=== PATIENT | female | born 2000 | race Caucasian/White ===

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

== ENCOUNTER 2021-09-05 21:05 | Emergency (ER) | payer BC, SELFPAY ==
[2021-09-05 21:06] VITALS: BP 121/68; PULSE 94; RESP 16; TEMP 36.9; O2SAT 96; BMI 22.8
[2021-09-06 02:21] VITALS: PULSE 70
--- NOTE | 2021-09-06 03:59 | EX.ED.DYSGE1 ---
HPI History of Present Illness Chief Complaint: Laceration Narrative Narrative: Patient is a 21-year-old female who is right-hand dominant. 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 She denies any numbness tingling weakness but based on laceration is concerned it may need sutures and therefore comes in for evaluation. Patient states she is unsure of her tetanus status PFSH [facility] Home Medications No Known/Unobtainable [No Known Home Medications] 06/17/14 [History Last Taken Unknown] Allergy/AdvReac Type Severity Reaction Status Date / Time No Known Allergies Allergy Verified 09/05/21 21:07 Social History (Updated 07/24/19 @ 20:[address] Meredith Ramos MD) Smoking Status: Never smoker alcohol intake: never substance use type: does not use seatbelt use: always additional social history: Senior in High School ROS ROS ED Constitutional Constitutional ED: Denies chills or fever(s) ENT ENT ED: Denies sore throat Cardiovascular Cardiovascular: Denies chest pain Respiratory/Chest Respiratory/Chest: Denies cough or dyspnea Gastrointestinal Gastrointestinal: Denies abdominal pain, diarrhea, nausea or vomiting Genitourinary Genitourinary ED: Denies dysuria Musculoskeletal Musculoskeletal: Reports other Details: Positive left thumb pain ; Denies myalgias Integumentary Reports other Details: Positive left thumb laceration ; Denies rash Neurologic Neurologic: Denies headache(s), paresthesias or weakness Hematologic/Lymphatic Hematologic/Lymphatic: Denies easy bleeding or easy bruising EXAM Physical Exam Const Vital Signs: 09/05/21 21:06 09/06/21 02:21 Temperature 98.5 F Temperature Source Temporal Pulse Rate 94 70 Respiratory Rate 16 Blood Pressure 121/68 H Blood Pressure Mean 85 Pulse Ox 96 Oxygen Delivery Method Room Air Positive well nourished and well developed General Appearance ED: well developed Eyes PERRL and EOMs intact bilaterally Neck supple Resp normal respiratory effort and clear to auscultation bilaterally Cardio regular rate and regular rhythm Extremity Extremity Narrative: Patient has a linear 2 cm laceration of the dorsal aspect of her left thumb. The wound is subcutaneous layer deep with no foreign body no ligamentous or tendon damage. There is a small superficial arterial artery bleeding associated with laceration. Otherwise no signs of bony deformity and the remainder the exam is normal Neuro oriented x3 and CN's II-XII intact bilaterally Sensorium / Orientation: alert Psych mental status grossly normal Skin Skin Narrative: Laceration to the left thumb as document above MDM MDM MDM Narrative Medical decision making narrative: Patient presented to ER with a simple laceration to her left thumb. She has no signs of ligamentous or tendon or bony damage so there is no need for x-ray or blood work. We discussed updating the patient's tetanus status but she has no concern for this with her laceration and therefore does not want it given. Therefore the laceration was sutured as documented below and patient is safe for discharge Patient had her left thumb cleaned with chlorhexidine. It was anesthetized with 8 mL of 2% lidocaine without epinephrine in digital block fashion. The wound was copiously irrigated with normal saline. Then three 5-0 Vicryl sutures were placed in a pursestring fashion to close the small superficial arterial bleeding. After this 4 4-0 Ethilon sutures were then placed in simple operative fashion to bring the wound together good approximation. Patient tolerated procedure well without complication Discharge Plan Triage Chief Complaint: Laceration ED Provider: Aiden Burns Dx/Rx/DC Orders Clinical Impression: Laceration of left thumb Instructions: ED Laceration, Hand: All Closures Prescriptions: No Action No Known Home Medications RF: 0 Primary Care Provider: Odilon Bonner Referrals: Odilon Bonner MD [Primary Care Provider] - Activity Restrictions/Additional Instructions: Please see your family doctor or return to the ER in 7 to 10 days for suture removal Disposition Disposition: Home, Self Care Discharge Date/Time: 09/06/21 04:29
== END 2021-09-06 04:29 | disposition home or self-care (01) ==
PROVIDERS: Emergency Provider Emergency Medicine; PCP Family Medicine; Visit Provider Emergency Medicine
DX: S61.012A Laceration without foreign body of left thumb without damage to nail, initial encounter (principal); W26.9XXA Contact with unspecified sharp object(s), initial encounter
CPT/HCPCS: 12001; 99283

== ENCOUNTER → 2022-05-30 | Outpatient (CLI) | payer BC, SELFPAY | END | disposition home or self-care (01) | LOC: LAB 15:55 | PROVIDERS: PCP Family Medicine; Referring Provider Otolaryngology; Visit Provider Otolaryngology | DX: J02.9 Acute pharyngitis, unspecified (principal) | CPT/HCPCS: 87070 ==

== ENCOUNTER → 2022-08-25 | Outpatient (CLI) | payer BC, SELFPAY ==
[2022-08-25 12:38] LABS: Absolute Lymphocyte Count 1.34 X10^3/uL (0.83-4.51); Absolute Neutrophil Count 1.3 X10^3/uL (2.0-7.7); Basophil# 0.02 X10^3/uL; Basophil% 0.7 % (0-1); Eosinophil# 0.01 X10^3/uL; Eosinophils% 0.3 % (0-5); Hematocrit 41.6 % (37-47); Hemoglobin 13.2 g/dL (12.0-15.0); Lymphocyte # 1.34 X10^3/ul (0.83-4.51); Lymphocyte % 45.7 % (19-41); Mean Corp Hgb Conc 31.7 g/dL (32-36); Mean Corpuscular Hgb 27.4 pg (27.0-32.0); Mean Corpuscular Volume 86.3 fL (81-99); Mean Platelet Vol. 10.6 fl (6.2-12.0); Monocyte% 10.2 % (0-10); NRBC Flagged by Analyzer 0 % (0-5); Neutrophil # 1.26 X10^3/uL (2.7-7.7); Neutrophil % 43.1 % (47-70); Platelet Count 233 K/mm3 (150-450); RBC Distribution Width CV 12.9 % (11.6-14.6); RBC Distribution Width SD 40.3 fl (35.1-43.9); Red Blood Count 4.82 M/mm3 (4.2-5.4); White Blood Count 2.9 K/mm3 (4.4-11.0)
[2022-08-25 12:39] LABS: ALB/GLOB Ratio 1.2 RATIO (0.9-2.4); AST(SGOT) 17 U/L (15-37); Alanine Aminotransfer ALT/SGPT 22 U/L (13-56); Albumin, Serum 4.1 g/dL (3.2-5.0); Alkaline Phosphatase 48 U/L (45-117); Anion Gap 3 (5-15); BUN 10 mg/dL (7-18); CRP < 2.90 mg/L (0.0-3.0); Chloride 106 mmol/L (98-107); Creatinine, Serum 0.62 mg/dL (0.55-1.02); EST Glomerular Filtration Rate 128 mL/min (>60); Est Glom Filt Rate - Afr Amer 155 mL/min (>60); Globulin 3.3 g/dL (2.2-4.2); Glucose 85 mg/dL (74-106); Potassium 4.3 mmol/L (3.5-5.1); Protein, Total 7.4 g/dL (6.4-8.2); Sodium Level 138 mmol/L (136-145)
[2022-08-25 12:41] LABS: Internal QC Validated? YES +Cl - CLEAR BKGD
[2022-08-25 12:42] LABS: Monotest Negative (Negative)
== END | disposition home or self-care (01) ==
LOC: MFPLAB 10:38
PROVIDERS: PCP Family Medicine; Referring Provider Family Medicine; Visit Provider Family Medicine
DX: J11.1 Influenza due to unidentified influenza virus with other respiratory manifestations (principal); R10.811 Right upper quadrant abdominal tenderness
CPT/HCPCS: 36415; 80053; 85025; 86140; 86308

== ENCOUNTER → 2023-05-24 | Outpatient (CLI) | payer BC, SELFPAY ==
[2023-05-28 06:07] LABS: Chlamydia By Nucleic Acid AMP Negative (Negative); Gonococcus By Nucleic Acid AMP Negative (Negative)
[2023-05-29 19:51] LABS: HPV Reflexed? NOT INDICATED
== END | disposition home or self-care (01) ==
LOC: LABSPEC 16:55
PROVIDERS: Referring Provider Obstetrics & Gynecology; Visit Provider Obstetrics & Gynecology
DX: Z34.90 Encounter for supervision of normal pregnancy, unspecified, unspecified trimester (principal); Z3A.00 Weeks of gestation of pregnancy not specified
CPT/HCPCS: 87491; 87591; 88175; G0145

== ENCOUNTER → 2023-06-04 | Outpatient (CLI) | payer BC, SELFPAY ==
[2023-06-04 17:00] LABS: Absolute Lymphocyte Count 2.41 X10^3/uL (0.83-4.51); Absolute Neutrophil Count 6.9 X10^3/uL (2.0-7.7); Basophil# 0.06 X10^3/uL; Basophil% 0.6 % (0-1); Eosinophil# 0.08 X10^3/uL; Eosinophils% 0.8 % (0-5); Hematocrit 36.2 % (37-47); Hemoglobin 11.8 g/dL (12.0-15.0); Lymphocyte # 2.41 X10^3/ul (0.83-4.51); Lymphocyte % 24.1 % (19-41); Mean Corp Hgb Conc 32.6 g/dL (32-36); Mean Corpuscular Hgb 27.6 pg (27.0-32.0); Mean Corpuscular Volume 84.6 fL (81-99); Mean Platelet Vol. 10.5 fl (6.2-12.0); Monocyte# 0.54 X10^3/uL; Monocyte% 5.4 % (0-10); NRBC Flagged by Analyzer 0 % (0-5); Neutrophil # 6.88 X10^3/uL (2.7-7.7); Neutrophil % 68.9 % (47-70); Platelet Count 288 K/mm3 (150-450); RBC Distribution Width CV 12.7 % (11.6-14.6); RBC Distribution Width SD 38.8 fl (35.1-43.9); Red Blood Count 4.28 M/mm3 (4.2-5.4)
[2023-06-04 17:15] LABS: NATERA MAILED SPECIMEN
[2023-06-04 18:18] LABS: HIV - WCH Non-Reactive (Nonreactive); Hepatitis B Surface Antigen Non-Reactive (Nonreactive); Hepatitis C Antibody Non-Reactive (Nonreactive); Rubella IgG Reactive (Nonreactive); Syphilis Antibodies Non-reactive
== END | disposition home or self-care (01) ==
LOC: LAB 16:02
PROVIDERS: PCP Family Medicine; Referring Provider Obstetrics & Gynecology; Visit Provider Obstetrics & Gynecology
DX: Z34.81 Encounter for supervision of other normal pregnancy, first trimester (principal); Z3A.00 Weeks of gestation of pregnancy not specified; Z31.430 Encounter of female for testing for genetic disease carrier status for procreative management
CPT/HCPCS: 36415; 85025; 86703; 86762; 86780; 86803; 86850; 86900; 86901; 87086; 87088; 87340

== ENCOUNTER → 2023-06-25 | Outpatient (CLI) | payer BC, SELFPAY | END | disposition home or self-care (01) | LOC: LABSPEC 15:55 | PROVIDERS: PCP Family Medicine; Referring Provider Registered Nurse; Visit Provider Registered Nurse | DX: O23.40 Unspecified infection of urinary tract in pregnancy, unspecified trimester (principal); Z3A.00 Weeks of gestation of pregnancy not specified | CPT/HCPCS: 87086; 87088 ==

== ENCOUNTER → 2023-10-11 | Outpatient (CLI) | payer BC, SELFPAY ==
[2023-10-11 10:16] LABS: Absolute Lymphocyte Count 1.43 X10^3/uL (0.83-4.51); Absolute Neutrophil Count 6.3 X10^3/uL (2.0-7.7); Basophil# 0.06 X10^3/uL; Basophil% 0.7 % (0-1); Eosinophil# 0.13 X10^3/uL; Eosinophils% 1.5 % (0-5); Hematocrit 27.2 % (37-47); Hemoglobin 8.7 g/dL (12.0-15.0); Lymphocyte # 1.43 X10^3/ul (0.83-4.51); Lymphocyte % 16.6 % (19-41); Mean Corpuscular Hgb 27.8 pg (27.0-32.0); Mean Corpuscular Volume 86.9 fL (81-99); Mean Platelet Vol. 9.8 fl (6.2-12.0); Monocyte# 0.53 X10^3/uL; Monocyte% 6.1 % (0-10); NRBC Flagged by Analyzer 0 % (0-5); Platelet Count 275 K/mm3 (150-450); RBC Distribution Width CV 13.9 % (11.6-14.6); Red Blood Count 3.13 M/mm3 (4.2-5.4); White Blood Count 8.6 K/mm3 (4.4-11.0)
[2023-10-11 10:36] LABS: Glucose Challenge Gest 1H 50g 159 mg/dL (70-140)
[2023-10-11 11:09] LABS: HIV - WCH Non-Reactive (Nonreactive); Syphilis Antibodies Non-reactive
== END | disposition home or self-care (01) ==
LOC: PAVLAB 09:48
PROVIDERS: Registered Nurse; PCP Family Medicine; Referring Provider Advanced Practice Midwife; Visit Provider Advanced Practice Midwife
DX: O99.019 Anemia complicating pregnancy, unspecified trimester (principal); D56.3 Thalassemia minor; Z3A.00 Weeks of gestation of pregnancy not specified
CPT/HCPCS: 36415; 82950; 83021; 85025; 85660; 86703; 86780

== ENCOUNTER → 2023-10-17 | Outpatient (CLI) | payer BC, SELFPAY ==
--- OUTSIDE RECORDS SUMMARY | 2023-10-17 10:12 | XMS RPT_ITS | CCD ---
Author Name Unknown Address [address] [place] [address] [id number] [place] [address] Organization [facility] Care Team Providers Care Program Host Name Role Phone CALIN BROWNING Attending Unavailable SUPRIYA ZALDIVAR Referring SUPRIYA Dalal Primary Care Richi kinney Encounters Encounter Date Encounter Type Care Provider Facility Start: 08-09-2023 End: 08-09-2023 ambulatory CALIN BROWNING [facility] Payers Date Payer Category Payer Unknown [id number] Unknown [id number] Summary Purpose Family History No Family History Records Found Advance Directives No Advanced Directives Records Found Additional Source Comments INFORMATION SOURCE (unrecogn ized section and content) FOR RECORDS PERTAINING TO PATIENTS WHO ARE OR HAVE BEEN ENROLLED IN A CHEMICAL DEPENDENCY/SUBSTANCEABUSE PROGRAM, SOME INFORMATION MAY BE OMITTED. This clinical summary was aggregated from multiple sources. Caution should be exercised in using it in the provision of clinical care. This summary normalizes information from multiple sources, and as a consequence, information in this document may materially change the coding, format and clinical context of patient data. In addition, data may be omitted in some cases. CLINICAL DECISIONS SHOULD BE BASED ON THE PRIMARY CLINICAL RECORDS. [employer] provides no warranty or guarantee of the accuracy or completeness of information in this document.
[2023-10-17 11:17] LABS: Absolute Lymphocyte Count 1.76 X10^3/uL (0.83-4.51); Absolute Neutrophil Count 7.2 X10^3/uL (2.0-7.7); Basophil# 0.08 X10^3/uL; Basophil% 0.8 % (0-1); Eosinophil# 0.19 X10^3/uL; Eosinophils% 1.8 % (0-5); Hematocrit 30.8 % (37-47); Hemoglobin 9.4 g/dL (12.0-15.0); Lymphocyte # 1.76 X10^3/ul (0.83-4.51); Mean Corp Hgb Conc 30.5 g/dL (32-36); Mean Corpuscular Hgb 26.3 pg (27.0-32.0); Mean Corpuscular Volume 86.3 fL (81-99); Mean Platelet Vol. 10.7 fl (6.2-12.0); Monocyte# 0.83 X10^3/uL; NRBC Flagged by Analyzer 0 % (0-5); Neutrophil # 7.21 X10^3/uL (2.7-7.7); Neutrophil % 69.7 % (47-70); Platelet Count 324 K/mm3 (150-450); RBC Distribution Width CV 13.8 % (11.6-14.6); RBC Distribution Width SD 42.5 fl (35.1-43.9); Red Blood Count 3.57 M/mm3 (4.2-5.4); White Blood Count 10.4 K/mm3 (4.4-11.0)
[2023-10-17 11:48] LABS: Vitamin B12 324 pg/mL (211-911)
[2023-10-17 11:49] LABS: Glucose GTT-Gestation. Fasting 95 mg/dL (<105)
[2023-10-17 11:49] LABS: Glucose GTT-Gestational 1 Hr 186 mg/dL (<190)
[2023-10-17 12:58] LABS: Glucose GTT-Gestational 2 Hr 145 mg/dL (<165)
[2023-10-17 13:36] LABS: Glucose GTT-Gestational 3 Hr 89 L (<145)
[2023-10-17 14:37] LABS: Ferritin 5 ng/mL (8-252); Iron 30 ug/dL (50-170); Iron Binding Capacity,Total 572 ug/dL (250-450)
== END | disposition home or self-care (01) ==
LOC: LAB 09:52
PROVIDERS: PCP Family Medicine; Referring Provider Advanced Practice Midwife; Visit Provider Advanced Practice Midwife
DX: O99.019 Anemia complicating pregnancy, unspecified trimester (principal); O99.810 Abnormal glucose complicating pregnancy; Z3A.00 Weeks of gestation of pregnancy not specified
CPT/HCPCS: 36415; 82607; 82728; 82746; 82951; 82952; 83540; 83550; 85025

== ENCOUNTER → 2023-12-07 | Outpatient (CLI) | payer BC, SELFPAY | END | disposition home or self-care (01) | LOC: LABSPEC 12:44 | PROVIDERS: PCP Family Medicine; Referring Provider Obstetrics & Gynecology; Visit Provider Obstetrics & Gynecology | DX: Z34.90 Encounter for supervision of normal pregnancy, unspecified, unspecified trimester (principal); Z3A.00 Weeks of gestation of pregnancy not specified | CPT/HCPCS: 87081 ==

== ENCOUNTER → 2023-12-07 | Outpatient (CLI) | payer BC, SELFPAY ==
--- NOTE | 2023-12-07 15:37 | US_ITS ---
STUDY: SECOND AND THIRD TRIMESTER OBSTETRICAL ULTRASOUND - LIMITED REASON FOR EXAM: Female, 23 years old gestational diabetes, growth scan PRIOR ULTRASOUND: No relevant prior comparison study available TECHNIQUE: Transabdominal. Grayscale and color Doppler imaging with M-mode analysis. TECHNICAL QUALITY: Adequate. FINDINGS: There is a single intrauterine fetus. The fetus is in a cephalic presentation. There is demonstrated cardiac activity with a heart rate of 144 bpm. There is a normal amniotic fluid volume. The largest amniotic fluid pocket measures 3.5 cm. The amniotic fluid index (POLA) is 12.1 cm. The placenta is posterior There are Grade 2 placental changes. The cervix is not seen.. BIOMETRIC MEASUREMENTS: * BIPARIETAL DIAMETER: 9.4 cm which corresponds to 38 weeks, 1 day. * HEAD CIRCUMFERENCE: 33.3 cm which corresponds to 38 weeks, 0 days. * ABDOMINAL CIRCUMFERENCE: 34.3 cm which corresponds to 38 weeks, 1 day. * FEMORAL LENGTH: 6.6 cm which corresponds to 33 weeks, 6 days. Age by LMP: 36 weeks, 5 days. JOSEPH by LMP: 12/30/2023. age by current US: 37 weeks, 1 days. JOSEPH by current US: 12/27/2023. Estimated weight: 3145 grams, +/- 472 grams, 67.5 percentile. US/OB Limited With Biometrics IMPRESSION: * Single live intrauterine gestation with an estimated gestational age of 37 weeks, 1 day. * Estimated weight 3145 g which is in the 68th percentile * No acute abnormalities. Electronically Signed: Danial Stewart MD at 2:46 EDT ,
== END | disposition home or self-care (01) ==
PROVIDERS: PCP Family Medicine; Referring Provider Registered Nurse; Visit Provider Registered Nurse
DX: O24.419 Gestational diabetes mellitus in pregnancy, unspecified control (principal); Z3A.00 Weeks of gestation of pregnancy not specified
CPT/HCPCS: 76816

== ENCOUNTER 2023-12-30 19:11 | Inpatient (IN) | payer BC, SELFPAY ==
[2023-12-30 19:22] VITALS: PULSE 101; RESP 16; TEMP 37.3; O2SAT 98
[2023-12-30 19:23] VITALS: BP 125/71; PULSE 100
[2023-12-30] MEDS: Lactated Ringers 1,000 ML 50 ML IV (19:40)
[2023-12-30 19:42] VITALS: BMI 32.6
[2023-12-30 19:55] LABS: Absolute Lymphocyte Count 1.44 X10^3/uL (0.83-4.51); Absolute Neutrophil Count 7.7 X10^3/uL (2.0-7.7); Basophil# 0.05 X10^3/uL; Basophil% 0.5 % (0-1); Eosinophil# 0.09 X10^3/uL; Eosinophils% 0.9 % (0-5); Hematocrit 34.4 % (37-47); Lymphocyte # 1.44 X10^3/ul (0.83-4.51); Lymphocyte % 14.4 % (19-41); Mean Corpuscular Hgb 27.2 pg (27.0-32.0); Mean Corpuscular Volume 85.1 fL (81-99); Mean Platelet Vol. 11.8 fl (6.2-12.0); NRBC Flagged by Analyzer 0 % (0-5); Neutrophil # 7.74 X10^3/uL (2.7-7.7); Neutrophil % 77.3 % (47-70); Platelet Count 223 K/mm3 (150-450); RBC Distribution Width CV 17.8 % (11.6-14.6); RBC Distribution Width SD 54.6 fl (35.1-43.9); Red Blood Count 4.04 M/mm3 (4.2-5.4)
[2023-12-30 20:07] LABS: Bedside Glucose 89 mg/dL (74-106)
[2023-12-30] MEDS: miSOPROStol 25 MCG TABLET VAGINAL (20:24)
[2023-12-30 20:28] LABS: Syphilis Antibodies Non-reactive
[2023-12-31] VITALS (70 sets, daily range): BP systolic 59–129; BP diastolic 34–86; PULSE 65–123; RESP 16; TEMP 36.5–37.3; O2SAT 93–98
[2023-12-31 00:43] LABS: Bedside Glucose 89 mg/dL (74-106)
[2023-12-31 00:43] LABS: Bedside Glucose 87 mg/dL (74-106)
[2023-12-31] MEDS: Oxytocin 15 Units/NS 250ml 15 UNITS/250 ML IV.SOLN 2 UNITS IV (04:05)
[2023-12-31 04:36] LABS: Bedside Glucose 90 mg/dL (74-106)
--- NOTE | 2023-12-31 04:37 | HP.PCM.OB_ITS ---
HPI - General General Date of Admission: 12/30/23 Date of Service: 12/31/23 Chief Complaint: induction of labor HPI Narrative YASMANY VAUGHN, is a 23 F who presents at 40.1 for IOL for diet controlled GDM. active fetus. no lof/vb Maternal Data Information JOSEPH Calculator Estimated Delivery Date Method Current WG Current Estimate 12/30/23 LMP (Certain) 40w 1d Other Estimates 12/28/23 Ultrasound #1 40w 3d PFSH PFSH Medical History Abnormal glucose affecting Home Medications docosahexaenoic acid 200 mg capsule ( DHA) mg PO 05/24/23 [History Last Taken Unknown] ondansetron 4 mg disintegrating tablet 4 mg PO Q8H PRN nausea and vomiting #30 tabs 05/24/23 [Rx Last Taken Unknown] blood sugar diagnostic (Blood Glucose Test strips) #120 ea 11/28/23 [Rx Last Taken Unknown] blood-glucose meter #1 ea 11/28/23 [Rx Last Taken Unknown] lancets #200 ea 11/28/23 [Rx Last Taken Unknown] Allergy/AdvReac Type Severity Reaction Status Date / Time No Known Allergies Allergy Verified 12/30/23 19:40 Family History Other Diabetes Surgical History S/P plastic surgery Social History Smoking Status: Former smoker alcohol intake: never substance use type: does not use caffeine: Yes what type of physical activity do you participate in: none seatbelt use: always do you feel safe at home: Yes additional social history: - Carsno History 1 Elective abortions Hx Para 0 Spontaneous abortions Hx # Term Pregnancies Ectopic pregnancies Hx # Pregnancies Multiple births # of living children 0 Visit Details Expected Delivery Route/Plan Labor Preferences- CB/BF classes: discussed. labor support person: Carson labor intervention preferences: [] pain management options preferred: limited!! cut cord/dad catch: cord : yes PP control planned: discussed discussed possible routes of delivery and associated risks: [] special requests: [] Plans Covid status: [] Flu vaccine: no Tdap vaccine: declines Rhogam: NA LARC form signed: yes Problem list reviewed and updated with the most current plan of care details and appropriate orders placed. Relevant counseling for the gestational age provided. Continue routine care and follow up unless otherwise noted in visit notes/problem list details OB Flowsheet Initial Weight: 145 lb Date -?-?-?-?-?-?-?-?-?-?-?-?- EGA Weight BP Urine Prot -?-?-?-?-?-?-?-?-?-?-?-?- Glucose FHR FuHt Pres Dilation -?-?-?-?-?-?-?-?-?-?-?-?- Effaced St Visit Note 05/24/23 -?-?-?-?-?-?-?-?-?-?-?-?- 8w 4d 145 lb (+0 oz) 124/78 -?-?-?-?-?-?-?-?-?-?-?-?- 170 -?-?-?-?-?-?-?-?-?-?-?-?- JV- CRL consiste nt with LMP. NIPT and carrier requested. 06/25/23 -?-?-?-?-?-?-?-?-?-?-?-?- 13w 1d 149 lb 4 oz (+4 lb 4 oz) 125/78 Trace -?-?-?-?-?-?-?-?-?-?-?-?- Negative 160 -?-?-?-?-?-?-?-?-?-?-?-?- LC- no vb/crampi ng. declines afp. mfm anatomy ordered. LC- no vb/cramping. declines afp. mfm anatomy ordered. its a girl! LC- no vb/cramping. declines afp. mfm anatomy ordered. its a girl! discomfort with urination in the AM, urine culture sent. LC- no vb/cramping. declines afp. +carrier with alpha thalassemia, carrier screening for ordered. mfm anatomy ordered. its a girl! discomfort with urination in the AM, urine culture sent. 07/23/23 -?-?-?-?-?-?-?-?-?-?-?-?- 17w 1d 158 lb 2 oz (+13 lb 2 oz) 127/74 Negative -?-?-?-?-?-?-?-?-?-?-?-?- Negative 155 -?-?-?-?-?-?-?-?-?-?-?-?- LC- no vb/crampi ng. has anatomy scheduled. having round ligament pain. no other concerns. 08/03/23 -?-?-?--?-?-?-?-?-?-?-?-?- 18w 5d 154 lb (+9 lb) 134/83 Negative -?-?-?-?-?-?-?-?-?-?-?-?- Negative 150 0 -?-?-?-?-?-?-?-?-?-?-?-?- SM- patient seen for brown discharge no cramping 08/22/23 -?-?-?-?-?-?-?-?-?-?-?-?- 21w 3d 166 lb 2 oz (+21 lb 2 oz) 116/73 -?-?-?-?-?-?-?-?-?-?-?-?- 149 -?-?-?-?-?-?-?-?-?-?-?-?- JV- still having brown dc but no cramping. cx is 54mm on anatomy scan. bleeding and pain precautions given. placenta is posterior no previa. 09/18/23 -?-?-?-?-?-?-?-?-?-?-?-?- 25w 2d 177 lb 8 oz (+32 lb 8 oz) 125/81 Negative -?-?-?-?-?-?-?-?-?-?-?-?- Negative 155 25 -?-?-?-?-?-?-?-?-?-?-?-?- kw-no vb/crampin g. good fm. 28 week labs discussed. kw-no vb/cramping. good fm. 28 week labs discussed. no longer having vaginal bleeding. 10/09/23 -?-?-?-?-?-?-?-?-?-?-?-?- 28w 2d 181 lb 4 oz (+36 lb 4 oz) 122/68 Negative -?-?-?-?-?-?-?-?-?-?-?-?- Negative 154 28 -?-?-?-?-?-?-?-?-?-?-?-?- -No VB, lof. G babar FM. -No VB, lof. Good FM. Larc . Declines tdap. Will do 28 wk labs tomorrow 10/25/23 -?-?-?-?-?-?-?-?-?-?-?-?- 30w 4d 186 lb (+41 lb) 124/60 Negative -?-?-?-?-?-?-?-?-?-?-?-?- Negative 145 32 -?-?-?-?-?-?-?-?-?-?-?--?- kw-no vb/ariel farias fm. Unable to get supplies from pharmacy. another order given to her to take to local pharmacy today. Reviewed risks of GDM to and importance of stable BS. Will start monitoring and send BS in next week if out of range. 11/09/23 -?-?-?-?-?-?-?-?-?-?-?-?- 32w 5d 184 lb 6 oz (+39 lb 6 oz) 107/70 Negative -?-?-?-?-?-?-?-?-?-?-?-?- Negative 135 32 -?-?-?-?-?-?-?-?-?-?-?-?- JV- no lof, vagi nal bleeding, or dec fm. glucose log reviewed and overall normal. 11/23/23 -?-?-?-?-?-?-?-?-?-?-?-?- 34w 5d 190 lb 8 oz (+45 lb 8 oz) 118/72 Negative -?-?-?-?-?-?-?-?-?-?-?-?- Negative 130 34 -?-?-?-?-?-?-?-?-?-?-?-?- LC- no vb/ctx/lo f. good fm. glucose log reviewed and overall normal, 2 fastings at 95- was having tea with honey at night. will omit and reeval. 12/07/23 -?-?-?-?-?-?-?-?-?-?-?-?- 36w 5d 187 lb (+42 lb) 113/78 Trace -?-?-?-?-?-?-?-?-?-?-?-?- Negative 145 36.5 -?-?-?-?-?-?-?-?-?-?-?-?- JV- no lof, vagi nal bleeding, or dec fm. no complaints. GBS collected. declines vaginal exam. 12/13/23 -?-?-?-?-?-?-?-?-?-?-?-?- 37w 4d 188 lb 2 oz (+43 lb 2 oz) 109/70 Negative -?-?-?-?-?-?-?-?-?-?-?-?- Negative 145 38 -?-?-?-?-?-?-?-?-?-?-?-?- KW- no vb/lof/ r eg ctx. good fm. KW- no vb/lof/ reg ctx. good fm. labor precautions. 12/18/23 -?-?-?-?-?-?-?-?-?-?-?-?- 38w 2d 186 lb (+41 lb) 121/78 Negative -?-?-?-?-?-?-?-?-?-?-?-?- Negative 133 38 -?-?-?-?-?-?-?-?-?-?-?-?- kw- no vb/lof/ct x. good fm kw- no vb/lof/ctx. good fm. IOL discussed at 41 weeks. labor precautions reviewed. declines vaginal exam today kw- no vb/lof/ctx. good fm. IOL discussed at 41 weeks. labor precautions reviewed. declines vaginal exam today. needs repeat cbc 12/26/23 -?-?-?-?-?-?-?-?-?-?-?-?- 39w 3d 188 lb 6 oz (+43 lb 6 oz) 111/76 Negative -?-?-?-?-?-?-?-?-?-?-?-?- Negative 140 39 Cephalic 0 -?-?-?-?-?-?-?-?-?-?-?-?- JV- normal gluco se levels. need IOL set up. no lof, vaginal bleeding, or dec fm.. NST FHR Rate Baby A Baseline: 130 Variability:: Moderate Accelerations:: 15 x 15 Decelerations:: None NST Reactive:: Yes FHR Category:: Category I ROS Cardiovascular Cardiovascular: Denies abdominal pain, chest pain, diaphoresis or dyspnea Respiratory/Chest Respiratory/Chest: Denies change in mental status, chest congestion, chest tightness, cough, shortness of breath at rest, shortness of breath with exertion, breast mass, breast pain, breast skin changes, breast swelling, change in breast shape or nipple discharge Genitourinary Genitourinary: Reports change in urinary stream Musculoskeletal Musculoskeletal: Reports none Integumentary Integumentary: Reports none Neurologic Neurologic: Reports none Psychiatric Psychiatric: Reports none Endocrine Endocrinology: Reports none Hematologic/Lymphatic Hematologic/Lymphatic: Reports none Allergic/Immunologic Allergic/Immunologic: Reports none Vital Signs Vital Signs Vital Signs: 12/30/23 19:23 12/30/23 19:23 12/30/23 19:22 Temperature Temperature Source Pulse Rate 100 101 H Respiratory Rate Blood Pressure 125/71 H BP Systolic 125 BP Diastolic 71 Pulse Ox 12/30/23 19:22 12/30/23 19:22 12/30/23 19:22 Temperature Temperature Source Temporal Pulse Rate Respiratory Rate 16 Blood Pressure BP Systolic BP Diastolic Pulse Ox 98 12/30/23 19:22 12/30/23 19:22 12/31/23 00:10 Temperature 99.1 F Temperature Source Temporal Pulse Rate Respiratory Rate 16 Blood Pressure BP Systolic BP Diastolic Pulse Ox 12/31/23 00:10 12/31/23 00:10 12/31/23 00:10 Temperature Temperature Source Pulse Rate 83 Respiratory Rate 16 Blood Pressure 125/80 H BP Systolic 125 BP Diastolic 80 Pulse Ox 12/31/23 00:10 12/31/23 00:10 12/31/23 01:16 Temperature 99.0 F Temperature Source Pulse Rate Respiratory Rate Blood Pressure 123/65 H BP Systolic 123 BP Diastolic 65 Pulse Ox 98 12/31/23 01:16 12/31/23 01:16 12/31/23 01:16 Temperature Temperature Source Temporal Pulse Rate 92 Respiratory Rate 16 Blood Pressure BP Systolic BP Diastolic Pulse Ox 12/31/23 01:16 12/31/23 02:03 12/31/23 02:03 Temperature 98.3 F Temperature Source Pulse Rate 123 H Respiratory Rate Blood Pressure 122/79 H BP Systolic 122 BP Diastolic 79 Pulse Ox 12/31/23 02:03 12/31/23 02:05 12/31/23 02:05 Temperature Temperature Source Temporal Pulse Rate Respiratory Rate 16 Blood Pressure BP Systolic BP Diastolic Pulse Ox 98 12/31/23 02:05 12/31/23 02:03 12/31/23 03:02 Temperature 98.9 F Temperature Source Pulse Rate 79 Respiratory Rate Blood Pressure 120/74 BP Systolic 120 BP Diastolic 74 Pulse Ox 12/31/23 03:02 12/31/23 03:02 12/31/23 03:02 Temperature Temperature Source Pulse Rate 76 Respiratory Rate 16 Blood Pressure BP Systolic BP Diastolic Pulse Ox 96 12/31/23 03:02 12/31/23 04:12 12/31/23 04:12 Temperature 98.3 F Temperature Source Pulse Rate 80 Respiratory Rate Blood Pressure 119/86 H BP Systolic 119 BP Diastolic 86 Pulse Ox 12/31/23 04:11 12/31/23 04:11 12/31/23 04:11 Temperature Temperature Source Temporal Pulse Rate 75 Respiratory Rate Blood Pressure BP Systolic BP Diastolic Pulse Ox 97 12/31/23 04:11 12/31/23 04:11 Temperature 98.2 F Temperature Source Pulse Rate Respiratory Rate 16 Blood Pressure BP Systolic BP Diastolic Pulse Ox Weight Weight: 190 lb 3.2 oz Body Mass Index (BMI) 32.6 Physical Exam Const alert, oriented x3 and no apparent distress General Appearance: cooperative, comfortable and well kempt Orientation / Consciousness: awake and oriented to person Exam Limitations: no limitations HEENT normocephalic Neck full ROM Chest inspection of chest normal Resp normal respiratory effort, normal air movement and no retractions Effort and Inspection: able to speak in complete sentences and symmetric chest movement Cardio regular rate Peripheral Pulses: pulses 2+ throughout GI normal to inspection, nondistended, normoactive bowel sounds Inspection: gravid no CVA tenderness and appearance of the vagina normal External Female Exam: normal appearance of the urethra; Negative for external lesion OB / External & Speculum: external exam normal Manual OB Exam: estimated gestational size appropriate and presentation cephalic Uterus Palpation: Negative for uterus tender Extremity normal to inspection Skin no rashes or lesions noted Neuro deep tendon reflexes 2+ bilaterally and gait normal Motor Exam: strength 5/5 throughout and clonus absent Psych Activity / Motor Behavior: appropriate eye contact Speech: normal speech Labs Labs Labs: Blood Type O POSITIVE Antibody Screen NEGATIVE Hct 34.4 % (37-47) L Hgb 11.0 g/dL (12.0-15.0) L Obstetrics Ultrasound Syphilis Total Ab Non-reactive Rubella IgG Antibody Reactive (Nonreactive) Hep Bs Antigen Non-Reactive (Nonreactive) Hepatitis C Antibody Non-Reactive (Nonreactive) Chlamydia DNA (BRIDGER) Negative (Negative) N.gonorrhoeae DNA (BRIDGER) Negative (Negative) HIV 1&2 Antibody Non-Reactive (Nonreactive) Glucose 1 Hr 50 gm 159 mg/dL (70-140) H Gest Glucose Tolerance MG/DL Assessment & Plan (1) Encounter for induction of labor: COMMENT: cytotec 25mcg then transition to pitocin once favorable harrington. AROM prn (2) Gestational diabetes mellitus (GDM) affecting , antepartum: COMMENT: 4x daily testing, growth at 36 weeks.(68% at 37 weeks) (3) Alpha thalassemia silent carrier: COMMENT: partner will be screened when he gets his new insurance. She got bill for NIPT so he is not going to do currently. hemoglobinopathy screening ordered. CBC 10.9 initial (4) : QUALIFIERS: Weeks of gestation: 38 weeks Qualified Code(s): Z3A.38 - 38 weeks gestation of COMMENT: Neg GBS NIPT low risk, silent carrier for Alpha-Thalassemia, nl anatomy (5) Supervision of normal : QUALIFIERS: Normal : normal first Trimester: third trimester Qualified Code(s): Z34.03 - Encounter for supervision of normal first , third trimester COMMENT: PRR its a girl! JOSEPH 12/30/23 : Carson PLAN: Plan Patient presents IOL, plan management for with cytotec/pitocin/AROM. Pain management: plans unmedicated. GBS negative. Management of any complications: none I have reviewed the [facility] and made any clinically relevant updates. updated on admission, exam and poc and agrees with plan.
[2023-12-31] MEDS: LACTATED RINGERS 500 ML 999 ML IV ×3 (06:55→14:12)
[2023-12-31] MEDS: fentaNYL-bupivacaine (epidural) 100 ML BAG EPIDURAL ×3 (07:38→16:47)
--- NOTE | 2023-12-31 08:37 | PN.OBGYN_ITS ---
Subjective Subjective comfortable with epidural Objective Data Objective Data Vital Signs: Vital Signs Temp Pulse Resp BP Pulse Ox 97.7 F L 87 16 94/50 L 95 12/31/23 08:03 12/31/23 08:21 12/31/23 06:06 12/31/23 08:21 12/31/23 06:06 Weight: 190 lb 3.2 oz Body Mass Index (BMI) 32.6 Intake & Output: Intake and Output for Last 24 Hours 12/29/23 12/30/23 12/31/23 23:59 23:59 23:59 Intake Total 1016.24 / 1016.24 Output Total 400 / 400 800 / 800 Balance -400 / -400 216.24 / 216.24 Lab / Micro Data 12/30/23 19:40 Labs: Laboratory Results - last 24 hr 12/30/23 19:40: WBC 10.0, RBC 4.04 L, Hgb 11.0 L, Hct 34.4 L, MCV 85.1, MCH 27.2, MCHC 32.0, RDW Std Deviation 54.6 H, RDW Coeff of Estela 17.8 H, Plt Count 223, MPV 11.8, Immature Gran % (Auto) 0.900, Neut % (Auto) 77.3 H, Lymph % (Auto) 14.4 L, Moffat % (Auto) 6.0, Eos % (Auto) 0.9, Baso % (Auto) 0.5, Absolute Neuts (auto) 7.7, Absolute Lymphs (auto) 1.44, Nucleated RBC % 0, Syphilis Total Ab Non-reactive, Blood Type O POSITIVE, Antibody Screen NEGATIVE 12/30/23 19:45: POC Glucose 89 12/30/23 20:23: POC Glucose 89 12/31/23 00:17: POC Glucose 87 12/31/23 04:16: POC Glucose 90 Physical Exam Const alert and no apparent distress Lymph Lymphatic: no lymphadenopathy noted Resp normal respiratory effort and normal air movement Cardio regular rate and regular rhythm Manual OB Exam: dilated 6, effaced 80 and station -3 Amniotic Fluid: clear amniotic fluid Extremity normal to inspection and full ROM Skin no rashes or lesions noted Psych mental status grossly normal NST FHR Rate Baby A Baseline: 130 Variability:: Moderate Accelerations:: 15 x 15 Decelerations:: Early NST Reactive:: Yes FHR Category:: Category I Assessment & Plan (1) Encounter for induction of labor: COMMENT: cytotec 25mcg then transition to pitocin once favorable harrington. on pitocin of 8, q5 minute sotero. making cervical change PLAN: titrate Pitocin per protocol comfortable with epidural anticipate (2) Gestational diabetes mellitus (GDM) affecting , antepartum: COMMENT: 4x daily testing, growth at 36 weeks.(68% at 37 weeks) PLAN: stable glucose (87-90) monitor glucose per protocol.
[2023-12-31 08:59] LABS: Bedside Glucose 93 mg/dL (74-106)
[2023-12-31 10:23] LABS: Bedside Glucose 71 mg/dL (74-106)
[2023-12-31] MEDS: Lactated Ringers 1,000 ML 200 ML IV ×2 (10:35→16:31)
[2023-12-31 11:27] LABS: Bedside Glucose 70 mg/dL (74-106)
[2023-12-31 11:27] LABS: Bedside Glucose 65 mg/dL (74-106)
[2023-12-31 12:31] LABS: Bedside Glucose 68 mg/dL (74-106)
[2023-12-31 13:05] LABS: Bedside Glucose 76 mg/dL (74-106)
[2023-12-31 13:16] LABS: Bedside Glucose 97 mg/dL (74-106)
[2023-12-31 14:21] LABS: Bedside Glucose 77 mg/dL (74-106)
[2023-12-31 15:23] LABS: Bedside Glucose 69 mg/dL (74-106)
[2023-12-31 15:36] LABS: Bedside Glucose 82 mg/dL (74-106)
[2023-12-31 16:20] LABS: Bedside Glucose 83 mg/dL (74-106)
[2023-12-31 18:27] LABS: Bedside Glucose 92 mg/dL (74-106)
[2023-12-31 19:57] LABS: Bedside Glucose 80 mg/dL (74-106)
[2023-12-31] MEDS: Oxytocin 15 Units/NS 250ml 15 UNITS/250 ML IV.SOLN 83 UNITS IV (20:27)
[2023-12-31] MEDS: Oxytocin 10 UNITS/ML Vial IM (20:27)
[2023-12-31] MEDS: Methylergonovine 0.2 MG/ML Ampul IM (20:31)
[2023-12-31] MEDS: Carboprost Tromethamine 250 MCG/ML Ampul IM (20:36)
--- NOTE | 2023-12-31 20:50 | EX.PCM.OBRPT ---
Assessment & Plan (1) (spontaneous vaginal delivery): COMMENT: LC IOL GDM girl: Natalia Maternal Data Information JOSEPH Calculator Estimated Delivery Date Method Current WG Current Estimate 12/30/23 LMP (Certain) 40w 1d Other Estimates 12/28/23 Ultrasound #1 40w 3d Final JOSEPH: 12/30/23 Final JOSEPH Source: LMP Gestational age: 40.1 Vaginal Delivery Maternal Presentation Maternal Presentation: Medically Indicated Induction Maternal Presentation: at 40.1 for IOL for GDM diet controlled cytotec induction progressed to pitocin. epiduralized for comfort and progressed to fully dilated. Type of Induction: Pitocin and Cytotec Operative Information Date of Procedure: 12/31/23 Post-Operative Diagnosis: Surgery / Procedure Performed: Spontaneous Vaginal Delivery Type of Anesthesia: Epidural Drain: Quiles to straight drain Estimated Blood Loss: 450 Time of Delivery: 20:20 Findings Description of Procedure: Patient began pushing and delivered the head in the JOSETTE presentation. The head was delivered atraumatically tight nuchal cord was identified. The anterior and posterior shoulders delivered without complication followed by the rest of the infant and the was somersaulted over cord, cord lifted over head and infant was placed on the maternal abdomen. Delayed cord clamping was employed for approximately 3 minutes. Cord was clamped and cut and gentle traction was applied to the cord and the placenta delivered spontaneously immediately following it was noted to be intact with three-vessel cord. The perineum and vagina were inspected and noted to have a 1st degree laceration and right labial tear that was repaired with 3-0 Vicryl in usual sterile fashion with excellent hemostasis and laceration approximation. EBL was 450cc, brisk bleeding noted, Methergine and Hemabate provided along with stand IV and IM Pitocin to achieve uterine tone and hemostasis. Patient and tolerated delivery well. Presentation: Vertex Amniotic Membrane Rupture Type: Spontaneous Amniotic Fluid Description: Clear Placental Delivery Description: Spontaneous Placenta Disposition: [facility] Cord Vessel Description: 3 Vessels Cord Entanglement: Around neck x 1, tight A Gender: Female (1 minute): 8 (5 minute): 9 Delayed Cord Clamping: Yes Post Vaginal Delivery Medications Given After Delivery: IV Pitocin, IM Pitocin, IM Methergin and IM Hemabate Episiotomy Description: None Laceration: Vaginal Extension/lac and 1st degree Procedures Urinary/Genital [id number]: [id number] Vaginal Delivery [facility]
--- NOTE | 2023-12-31 20:59 | DCINST_ITS ---
Discharge Instructions Diet Discharge Diet: No restrictions Activity Discharge Activity: May Not Drive and May Shower May resume sexual activity in: 6 weeks Weight Bearing Status: Full weight bearing Dressing / Incision Call your doctor if your incision/area has: Sudden Increased Bleeding, Increased Pain/ Swelling and Foul Smelling Discharge Call your doctor if you observe: Fever of 101 or Higher, Numbness or Tingling, Change in Color, Inability to urinate, Inability to have a bowel movement, Using more than 1 pad per hour, Shortness of breath, Dizziness, Fainting spells, Chest pain, Calf discomfort and Uncontrolled pain Follow Up Care Please Follow Up With: Mikki Liu CNM When: 6 weeks , please call office to make an appointment. Congratulations on the of your baby girl Natalia!! Test Results: Test results from this visit will be discussed in further detail at your follow- up appointment, if applicable. Discharge Plan Admission Admit Date/Time: 12/30/23 19:11 Attending Provider: Mikki Liu Primary Care Provider: Odilon Bonner Discharge Orders/Prescriptions Prescriptions: No Action (DME) Blood Glucose Test Strip See Rx Instructions .MEDSUPPLY Qty: 120 5RF Hold Instructions: using hospital monitor and strips Rx Instructions: As directed-fasting & 2 hr post meals (DME) blood-glucose meter Misc See Rx Instructions miscellaneous .MEDSUPPLY Qty: 1 0RF Hold Instructions: admitted to hospital Rx Instructions: As directed (DME) lancets Misc See Rx Instructions .MEDSUPPLY Qty: 200 5RF Hold Instructions: admitted to hospital Rx Instructions: As directed-fasting & 2 hr post meals Referrals / Follow Up: Odilon Bonner MD [Primary Care Provider] -
[2023-12-31] MEDS: Ondansetron 4 MG/2 ML Vial IV (21:35)
[2023-12-31 21:41] LABS: Bedside Glucose 92 mg/dL (74-106)
[2023-12-31] MEDS: DiphenhydrAMINE 50 MG/ML Syringe 25 MG IV (21:54)
[2023-12-31] MEDS: 0.9% Saline Lock 10 ML Syringe IV (21:55)
[2023-12-31] MEDS: Acetaminophen 500 MG Tablet 1000 MG PO (23:02)
[2024-01-01 00:25] VITALS: BP 116/72; PULSE 95; RESP 16; TEMP 37
[2024-01-01 03:36] VITALS: BP 119/62; PULSE 92; RESP 16
[2024-01-01] MEDS: Acetaminophen 500 MG Tablet 1000 MG PO ×2 (05:26→23:07)
[2024-01-01 06:21] LABS: Bedside Glucose 93 mg/dL (74-106)
--- NOTE | 2024-01-01 07:42 | PCM.PN.OB ---
Subjective Subjective Patient doing well without complaints. Tolerating PO. Ambulating and voiding without difficulty. Feeding well. Denies chest pain, shortness of breath, calf pain/swelling, fevers, chills, lightheadedness. Objective Data Objective Data Vital Signs: Vital Signs Temp Pulse Resp BP Pulse Ox O2 Del Method 98.6 F 92 16 119/62 93 Room Air 01/01/24 00:25 01/01/24 03:36 01/01/24 03:36 01/01/24 03:36 12/31/23 22:13 01/01/24 03:36 Oxygen Delivery Method Room Air Weight: 190 lb 3.2 oz Body Mass Index (BMI) 32.6 Intake & Output: Intake and Output for Last 24 Hours 12/30/23 12/31/23 01/01/24 23:59 23:59 23:59 Intake Total 4686.17 / 4686.17 Output Total 400 / 400 4550 / 4550 800 / 800 Balance -400 / -400 136.17 / 136.17 -800 / -800 Lab / Micro Data Attestation: I reviewed the patient's lab results. 12/30/23 19:40 Labs: Laboratory Results - last 24 hr 12/31/23 08:41: POC Glucose 93 12/31/23 09:57: POC Glucose 71 L 12/31/23 10:49: POC Glucose 65 L 12/31/23 11:07: POC Glucose 70 L 12/31/23 12:06: POC Glucose 68 L 12/31/23 12:21: POC Glucose 76 12/31/23 12:56: POC Glucose 97 12/31/23 14:03: POC Glucose 77 12/31/23 15:00: POC Glucose 69 L 12/31/23 15:18: POC Glucose 82 12/31/23 16:02: POC Glucose 83 12/31/23 18:07: POC Glucose 92 12/31/23 19:19: POC Glucose 80 12/31/23 21:23: POC Glucose 92 01/01/24 06:00: POC Glucose 93 ROS Constitutional Constitutional: Reports systems reviewed and no addt'l complaints, except as documented; Denies anorexia or headache(s) Cardiovascular Cardiovascular: Reports systems reviewed and no addt'l complaints, except as documented; Denies dizziness, dyspnea, nausea or tachypnea Respiratory/Chest Respiratory/Chest: Reports systems reviewed and no addt'l complaints, except as documented; Denies cough, dyspnea, shortness of breath at rest or tachypnea Gastrointestinal Gastrointestinal: Reports systems reviewed and no addt'l complaints, except as documented; Denies abdominal pain, constipation or nausea Genitourinary Genitourinary: Reports systems reviewed and no addt'l complaints, except as documented; Denies burning urination, difficulty urinating, dysuria, urinary frequency or urinary incontinence Musculoskeletal Musculoskeletal: Reports systems reviewed and no addt'l complaints, except as documented Integumentary Integumentary: Reports systems reviewed and no addt'l complaints, except as documented Neurologic Neurologic: Reports systems reviewed and no addt'l complaints, except as documented; Denies abnormal speech, dizziness or headache(s) Psychiatric Psychiatric: Reports systems reviewed and no addt'l complaints, except as documented Endocrine Endocrinology: Reports systems reviewed and no addt'l complaints, except as documented Hematologic/Lymphatic Hematologic/Lymphatic: Reports systems reviewed and no addt'l complaints, except as documented Physical Exam Const alert, oriented x3 and no apparent distress Neck full ROM Resp normal respiratory effort, normal air movement and no retractions Effort and Inspection: able to speak in complete sentences and symmetric chest movement GI soft to palpation Bladder / Kidney Exam: bladder normal to palpation Uterus Palpation: uterus fundus Extremity normal to inspection and full ROM Psych mental status grossly normal, thought process normal and cooperative Assessment & Plan (1) (spontaneous vaginal delivery): COMMENT: LC IOL GDM girl: Natalia PLAN: s/p PPD # 1 1. routine post delivery care 2. breast feeding- support given 3. rh positive 4. rubella immune (2) Encounter for induction of labor: COMMENT: cytotec 25mcg then transition to pitocin once favorable [place]. on pitocin of 8, q5 minute sotero. making cervical change (3) Gestational diabetes mellitus (GDM) affecting , antepartum: COMMENT: 4x daily testing, growth at 36 weeks.(68% at 37 weeks) (4) Anemia affecting : COMMENT: repeat cbc 4 weeks (5) Alpha thalassemia silent carrier: COMMENT: partner will be screened when he gets his new insurance. She got bill for NIPT so he is not going to do currently. hemoglobinopathy screening ordered. CBC 10.9 initial (6) UTI in : QUALIFIERS: Trimester: third trimester Qualified Code(s): O23.43 - Unspecified infection of urinary tract in , third trimester (7) : QUALIFIERS: Weeks of gestation: 38 weeks Qualified Code(s): Z3A.38 - 38 weeks gestation of COMMENT: Neg GBS NIPT low risk, silent carrier for Alpha-Thalassemia, nl anatomy (8) Supervision of normal : QUALIFIERS: Normal : normal first Trimester: third trimester Qualified Code(s): Z34.03 - Encounter for supervision of normal first , third trimester COMMENT: PRR its a girl! JOSEPH 12/30/23 : [place] Charges/Coding Multi Select Codes Urinary/Genital Urinary/Genital CPT Codes: No Charge
[2024-01-01] MEDS: Naproxen 500 MG Tablet PO (08:50)
[2024-01-01] MEDS: Hydrocortisone 2.5% Crm 1 APPLIC TOPICAL (08:51)
[2024-01-01 09:00] VITALS: BP 114/74; PULSE 102; RESP 16; TEMP 37.1; O2SAT 97
[2024-01-01 12:09] VITALS: BP 118/75; PULSE 96; RESP 16; TEMP 36.9; O2SAT 98
[2024-01-01 12:28] LABS: Bedside Glucose 68 mg/dL (74-106)
[2024-01-01 12:28] LABS: Bedside Glucose 73 mg/dL (74-106)
[2024-01-01 16:00] VITALS: BP 111/70; PULSE 100; RESP 16; TEMP 37.1
[2024-01-01 20:44] VITALS: BP 113/71; PULSE 92; RESP 16; TEMP 36.8
[2024-01-02 03:41] VITALS: BP 111/71; PULSE 80; RESP 16
--- NOTE | 2024-01-02 08:20 | PCM.PN.OB ---
Subjective Subjective Patient doing well without complaints. Tolerating PO. Ambulating and voiding without difficulty. Feeding well. Denies chest pain, shortness of breath, calf pain/swelling, fevers, chills, lightheadedness. Objective Data Objective Data Vital Signs: Vital Signs Temp Pulse Resp BP Pulse Ox O2 Del Method 98.3 F 80 16 111/71 98 Room Air 01/01/24 20:44 01/02/24 03:41 01/02/24 03:41 01/02/24 03:41 01/01/24 12:09 01/02/24 03:41 Oxygen Delivery Method Room Air Weight: 190 lb 3.2 oz Body Mass Index (BMI) 32.6 Intake & Output: Intake and Output for Last 24 Hours 12/31/23 01/01/24 01/02/24 23:59 23:59 23:59 Intake Total 4686.17 / 4686.17 Output Total 4550 / 4550 800 / 800 Balance 136.17 / 136.17 -800 / -800 Lab / Micro Data 12/30/23 19:40 Labs: Laboratory Results - last 24 hr 12/31/23 17:06: POC Glucose 68 L 12/31/23 17:20: POC Glucose 73 L Physical Exam Const alert and oriented x3 HEENT normocephalic Eyes PERRL Neck full ROM Resp normal respiratory effort GI soft to palpation GI Narrative: FF below U Assessment & Plan (1) (spontaneous vaginal delivery): COMMENT: LC IOL GDM girl: Natalia (2) Gestational diabetes mellitus (GDM) affecting , antepartum: (3) Anemia affecting : QUALIFIERS: Trimester: unspecified trimester Qualified Code(s): O99.019 - Anemia complicating , unspecified trimester COMMENT: repeat cbc 4 weeks (4) Alpha thalassemia silent carrier: COMMENT: partner will be screened when he gets his new insurance. She got bill for NIPT so he is not going to do currently. hemoglobinopathy screening ordered. CBC 10.9 initial PLAN: Plan s/p PPD # 1 1. routine post delivery care 2. breast feeding- support given 3. rh positive 4. rubella immune 5. home today
[2024-01-02 08:57] VITALS: BP 113/72; PULSE 96; RESP 16; TEMP 37.2; O2SAT 98
== END 2024-01-02 10:40 | disposition home or self-care (01) | DRG 807 ==
PROVIDERS: Admitting Provider Registered Nurse; PCP Family Medicine; Visit Provider Registered Nurse
DX: O24.420 Gestational diabetes mellitus in childbirth, diet controlled (principal); Z37.0 Single live birth; O48.0 Post-term pregnancy; O69.1XX0 Labor and delivery complicated by cord around neck, with compression, not applicable or unspecified; O70.0 First degree perineal laceration during delivery; Z87.891 Personal history of nicotine dependence; Z3A.40 40 weeks gestation of pregnancy
CPT/HCPCS: 59025; 59050; 82962; 85025; 86780; 86850; 86900; 86901; 99221; J7120; A4216; G0378; J2405

== ENCOUNTER → 2025-06-29 | Outpatient (CLI) | payer SELFPAY ==
[2025-06-29 17:26] LABS: Hematocrit 35.9 % (37-47); Hemoglobin 11.6 g/dL (12.0-15.0); Immature Granulocytes Count 0.040 X10^3/uL (0.0-0.0); Mean Corp Hgb Conc 32.3 g/dL (32-36); Mean Corpuscular Volume 82.9 fL (81-99); Mean Platelet Vol. 10.5 fl (6.2-12.0); NRBC Flagged by Analyzer 0 % (0-5); Platelet Count 350 K/mm3 (150-450); RBC Distribution Width CV 13.9 % (11.6-14.6); RBC Distribution Width SD 42.5 fl (35.1-43.9); Red Blood Count 4.33 M/mm3 (4.2-5.4); White Blood Count 9.6 K/mm3 (4.4-11.0)
[2025-06-29 17:49] LABS: HIV Nonreactive (Nonreactive); Hepatitis B Surface Antigen Nonreactive (Nonreactive); Hepatitis C Antibody Nonreactive (Nonreactive); Syphilis Antibodies Nonreactive (Nonreactive)
[2025-07-02 07:08] LABS: Chlamydia By Nucleic Acid AMP Negative (Negative); Gonococcus By Nucleic Acid AMP Negative (Negative)
== END | disposition home or self-care (01) ==
PROVIDERS: Obstetrics & Gynecology; PCP Family Medicine; Visit Provider Obstetrics & Gynecology
DX: O09.90 Supervision of high risk pregnancy, unspecified, unspecified trimester (principal); Z86.32 Personal history of gestational diabetes; Z3A.00 Weeks of gestation of pregnancy not specified
CPT/HCPCS: 36415; 83036; 85025; 86703; 86762; 86780; 86803; 86850; 86900; 86901; 87086; 87088; 87340; 87491; 87591